=== PATIENT | female | born 1945 | race Caucasian/White ===

== ENCOUNTER 2024-11-10 11:07 | Inpatient (IN) | payer MEDICARE, MEDICAID ==
[~2024-11-10] VITALS: Ht 167.6 cm; Wt 59.4 kg
[~2024-11-10 11:07] MED LIST: ARIP5SOL2 PO; DIPH25CA85 PO; LEVO100 PO; SIMV-260 PO; TRIH2TAB3 PO
[2024-11-10 11:51] LABS: BASOPHILS % (AUTO) 0.4 % (0.0-2.0); HEMATOCRIT 38.8 % (36-46); HEMOGLOBIN 12.6 g/dL (12.0-16.0); LYMPHOCYTES # (AUTO) 0.9 K/uL (1.0-4.8); LYMPHOCYTES % (AUTO) 12.8 % (22.0-44.0); MEAN CORPUSCULAR HEMOGLOBIN 27.9 pg (26.0-34.0); MEAN CORPUSCULAR HGB CONC 32.6 G/dL (31.0-37.0); MEAN CORPUSCULAR VOLUME 86 fL (80-100); MONOCYTES # (AUTO) 0.7 K/uL (0.1-1.0); MONOCYTES % (AUTO) 9.1 % (2.0-9.0); NEUTROPHILS # (AUTO) 5.6 K/uL (1.8-7.7); NEUTROPHILS % (AUTO) 76.7 % (40.0-70.0); PLATELET COUNT (AUTO) 257 K/uL (150-450); RED BLOOD CELL COUNT(AUTO) 4.53 MIL/uL (4.00-5.20); RED CELL DISTRIBUTION WIDTH 15.9 % (11.5-14.5); WHITE BLOOD COUNT (AUTO) 7.3 K/uL (4.5-11.0)
[2024-11-10 11:58] LABS: ANION GAP 12 mmol/L (8-16); CALCIUM, TOTAL 8.8 mg/dL (8.8-10.5); CARBON DIOXIDE 28 mmol/L (22-29); CHLORIDE 107 mmol/L (98-107); CREATININE 0.59 mg/dL (0.60-1.30); GLOMERULAR FILTR. RATE CALC > 60 mL/min (>60); GLUCOSE,RANDOM 92 mg/dL (70-110); SODIUM SERUM 147 mmol/L (136-145); UREA NITROGEN, BLOOD 12 mg/dL (7-18)
[2024-11-10 11:59] LABS: POTASSIUM 2.9 mmol/L (3.5-5.1)
[2024-11-10 12:23] LABS: ALCOHOL, BLOOD (SERUM) < 3 mg/dL (0-10)
[2024-11-10] MEDS: POTASSIUM CHLORIDE 20 MEQ ER TABLET PO ONE ×2 (12:56→16:53)
[2024-11-10] MEDS: OLANZapine 10 MG TABLET PO ONE (12:56)
[2024-11-10] MEDS: ARIPiprazole 5 MG TABLET PO ONE (12:56)
[2024-11-10 13:50] LABS: COVID AG,FIA SOURCE NASAL SWAB
[2024-11-10 14:19] LABS: SARS-COV2 (COVID) ANTIGEN,FIA Negative (Negative)
[2024-11-10 15:42] LABS: APPEARANCE,URINE TURBID (CLEAR); BILIRUBIN,URINE NEGATIVE (NEGATIVE); COLOR,URINE YELLOW (YELLOW); GLUCOSE, URINE (UA) NEGATIVE (NEGATIVE); LEUKOCYTE ESTERASE ,URINE LARGE (NEGATIVE); NITRATE,URINE NEGATIVE (NEGATIVE); OCCULT BLOOD,URINE NEGATIVE (NEGATIVE); PROTEIN,URINE 30-70 mg/dL (NEGATIVE); SPECIFIC GRAVITIY, URINE 1.023 (1.003-1.030)
[2024-11-10 15:50] LABS: ALCOHOL, URINE DRUG SCREEN NEGATIVE (NEGATIVE); AMPHET/METH SCREEN,URINE NEGATIVE (NEGATIVE); BARBITURATE SCREEN, URINE NEGATIVE (NEGATIVE); BENZODIAZEPINES SCREEN,URINE NEGATIVE (NEGATIVE); CANNABINOID SCREEN,URINE NEGATIVE (NEGATIVE); COCAINE SCREEN,URINE NEGATIVE (NEGATIVE); METHADONE SCREEN, URINE NEGATIVE (NEGATIVE); OPIATE SCREEN,URINE NEGATIVE (NEGATIVE); PHENCYCLIDINE SCREEN,URINE NEGATIVE (NEGATIVE)
[2024-11-10 15:51] LABS: BACTERIA,URINE Moderate /HPF (None Seen); RBC,URINE 0-2 /HPF (0-2); WBC,URINE 51-100 /HPF (0-5)
[2024-11-10 15:52] LABS: SQUAMOUS EPITHELIAL CELL,UR Moderate /LPF (None Seen)
[2024-11-10] MEDS: LEVOFLOXACIN 250 MG TABLET PO ONE (16:53)
[2024-11-10] MEDS ORDERED: ZOLPIDEM TARTRATE 10 MG TABLET PO PRN (21:30)
[2024-11-10] MEDS: HALOPERIDOL 5 MG TABLET PO ONE (22:21)
[2024-11-11] MEDS: DENTURE ADHESIVE 68 GM CREAM DT ONE (07:24)
[2024-11-11 11:17] VITALS: BP 132/81; PULSE 73; RESP 18; TEMP 98.1; O2SAT 98
[2024-11-11 11:25] VITALS: BP 132/81; PULSE 73; RESP 18; TEMP 98.3; O2SAT 98
[2024-11-11] MEDS ORDERED: PETROLATUM,WHITE 28 GM JELLY TP PRN (15:15)
[2024-11-11] MEDS ORDERED: GuaiFENesin/D-METHORPHAN [SUGAR-FREE] 200-20MG/10 ML SYRUP UDCUP PO PRN (15:15)
[2024-11-11] MEDS ORDERED: ALBUTEROL SULFATE HFA 90 MCG/PUFF 8 GM INHALER IH PRN (15:15)
[2024-11-11] MEDS ORDERED: LOPERAMIDE HCL 2 MG CAPSULE PO PRN (15:15)
[2024-11-11] MEDS ORDERED: IBUPROFEN 400 MG TABLET PO PRN (15:15)
[2024-11-11] MEDS ORDERED: MAG HYDROX/ALUMINUM HYD/SIMETH ES 30 ML SUSPENSION UDCUP PO PRN (15:15)
[2024-11-11] MEDS ORDERED: ONDANSETRON 4 MG TABLET PO PRN (15:15)
[2024-11-11] MEDS ORDERED: NICOTINE 14 MG/24 HOUR PATCH TD PRN (15:15)
[2024-11-11] MEDS ORDERED: CloNIDine HCL 0.1 MG TABLET PO PRN (15:15)
[2024-11-11] MEDS ORDERED: DOCUSATE SODIUM 100 MG CAPSULE PO PRN (15:15)
[2024-11-11] MEDS: LEVOFLOXACIN 500 MG TABLET PO SCH (17:35)
[2024-11-11 22:10] VITALS: BP 130/79; PULSE 68; RESP 18; TEMP 97.1; O2SAT 96
[2024-11-11] MEDS: ACETAMINOPHEN 325 MG TABLET PO PRN (22:19)
[2024-11-11 23:27] VITALS: RESP 18
[2024-11-12] MEDS: LEVOTHYROXINE SODIUM 50 MCG TABLET PO SCH (06:41)
[2024-11-12] MEDS: PANTOPRAZOLE SODIUM 40 MG DR TABLET PO SCH (06:41)
[2024-11-12 16:31] VITALS: RESP 18; O2SAT 96
[2024-11-12] MEDS: MAGNESIUM HYDROXIDE SUSPENSION 30 ML UDCUP PO PRN (20:29)
[2024-11-12] MEDS: TraZODone HCL 100 MG TABLET PO SCH (21:00)
[2024-11-12] MEDS: OLANZapine 7.5 MG TABLET PO SCH (21:17)
[2024-11-12 22:37] VITALS: BP 99/60; PULSE 89; RESP 18; TEMP 98.2; O2SAT 99
[2024-11-13 07:59] LABS: HEMOGLOBIN A1C 5.9 % (3.8-5.6)
[2024-11-13 08:10] LABS: ALANINE AMINOTRANSFERASE 13 U/L (12-78); ALBUMIN 2.7 g/dL (3.4-5.0); ALKALINE PHOSPHATASE 87 U/L (46-116); ANION GAP 5 mmol/L (8-16); ASPARTATE AMINOTRANSFERASE 11 U/L (15-37); BILIRUBIN,TOTAL 0.3 mg/dL (0.1-1.0); CALCIUM, TOTAL 8.8 mg/dL (8.8-10.5); CARBON DIOXIDE 31 mmol/L (22-29); CHLORIDE 109 mmol/L (98-107); CHOL/HDL RATIO 3.7 (3.9-5.7); CHOLESTEROL 201 mg/dL (131-200); CREATININE 0.68 mg/dL (0.60-1.30); GLOMERULAR FILTR. RATE CALC > 60 mL/min (>60); GLUCOSE,RANDOM 89 mg/dL (70-110); HDL CHOLESTEROL 55 mg/dL (40-60); LDL CHOL (CALC.) 125 mg/dL (0-130); POTASSIUM 3.8 mmol/L (3.5-5.1); SODIUM SERUM 145 mmol/L (136-145); TOTAL PROTEIN, SERUM 6.4 g/dL (6.4-8.2); TRIGLYCERIDES 105 mg/dL (15-150); UREA NITROGEN, BLOOD 13 mg/dL (7-18)
[2024-11-13 08:40] LABS: THYROID STIMULATING HORMONE 0.42 uIU/mL (0.36-3.74)
[2024-11-13 08:45] VITALS: BP 101/59; PULSE 67; RESP 18; TEMP 97.8; O2SAT 98
[2024-11-13 08:53] LABS: BASOPHILS % (AUTO) 0.4 % (0.0-2.0); HEMATOCRIT 39.3 % (36-46); HEMOGLOBIN 12.8 g/dL (12.0-16.0); LYMPHOCYTES # (AUTO) 1.8 K/uL (1.0-4.8); LYMPHOCYTES % (AUTO) 32.3 % (22.0-44.0); MEAN CORPUSCULAR HEMOGLOBIN 28.1 pg (26.0-34.0); MEAN CORPUSCULAR HGB CONC 32.6 G/dL (31.0-37.0); MEAN CORPUSCULAR VOLUME 86 fL (80-100); MONOCYTES # (AUTO) 0.5 K/uL (0.1-1.0); MONOCYTES % (AUTO) 9.2 % (2.0-9.0); NEUTROPHILS % (AUTO) 54.1 % (40.0-70.0); PLATELET COUNT (AUTO) 251 K/uL (150-450); RED BLOOD CELL COUNT(AUTO) 4.56 MIL/uL (4.00-5.20); RED CELL DISTRIBUTION WIDTH 16.3 % (11.5-14.5); WHITE BLOOD COUNT (AUTO) 5.6 K/uL (4.5-11.0)
[2024-11-13] MEDS: DENTURE ADHESIVE 68 GM CREAM DT PRN (13:32)
[2024-11-13 21:53] VITALS: BP 116/79; PULSE 71; RESP 18; TEMP 98; O2SAT 98
[2024-11-14 14:13] VITALS: RESP 17; TEMP 97.7
[2024-11-14 20:52] VITALS: BP 120/99; PULSE 57; RESP 18; TEMP 96.8; O2SAT 99
[2024-11-14 22:00] VITALS: RESP 18
[2024-11-14 23:00] VITALS: RESP 16
[2024-11-15] MEDS: LORazepam 2 MG TABLET PO PRN (00:47)
[2024-11-15 09:00] VITALS: BP 126/70; PULSE 67; RESP 19; TEMP 97.6; O2SAT 95
[2024-11-15 20:00] VITALS: TEMP 98.1; O2SAT 96
[2024-11-16] MEDS ORDERED: PANT-31 PO (12:17)
[2024-11-16] MEDS ORDERED: OLAN7.5T22 PO (12:19)
[2024-11-16] MEDS ORDERED: TRAZ-186 PO (12:19)
== END 2024-11-16 15:15 | DRG 885 ==
LOC: EMS 11:13 → 3EX 11-11 10:52 → UNDOADMIN 11-11 13:22
PROVIDERS: ADMIT Psychiatry & Neurology Psychiatry; ATTEND Psychiatry & Neurology Psychiatry
PROC: GZHZZZZ Group Psychotherapy (ICD-10-PCS; principal; 2024-11-12)
PROC: GZ52ZZZ Individual Psychotherapy, Cognitive (ICD-10-PCS; 2024-11-12)
PROC: GZ56ZZZ Individual Psychotherapy, Supportive (ICD-10-PCS; 2024-11-12)
DX: F20.0 Paranoid schizophrenia (principal); N39.0 Urinary tract infection, site not specified; K21.9 Gastro-esophageal reflux disease without esophagitis; E03.9 Hypothyroidism, unspecified; Z20.822 Contact with and (suspected) exposure to COVID-19; E78.5 Hyperlipidemia, unspecified; E87.6 Hypokalemia; G20.A1 Parkinson's disease without dyskinesia, without mention of fluctuations; Z79.899 Other long term (current) drug therapy; Z88.0 Allergy status to penicillin; Z95.0 Presence of cardiac pacemaker; F32.A Depression, unspecified; Z88.8 Allergy status to other drugs, medicaments and biological substances
CPT/HCPCS: 80048; 80053; 80061; 80307; 81001; 83036; 84132; 84443; 85025; 87077; 87081; 87086; 99285; G0378; G0480

== ENCOUNTER 2025-05-09 12:21 | Inpatient (IN) | payer MEDICARE, MEDICAID ==
[~2025-05-09] VITALS: Ht 165.1 cm; Wt 61.4 kg
[~2025-05-09 12:21] MED LIST changes: -ARIP5SOL2 PO; +CEPH-558 PO; -DIPH25CA85 PO; +OLAN10TA74 PO; +PANT-31 PO; -SIMV-260 PO; +TRAZ-186 PO; -TRIH2TAB3 PO
[2025-05-09 13:21] LABS: COVID AG,FIA SOURCE NASAL SWAB
[2025-05-09 13:27] LABS: APPEARANCE,URINE CLEAR (CLEAR); GLUCOSE, URINE (UA) NEGATIVE (NEGATIVE); LEUKOCYTE ESTERASE ,URINE SMALL (NEGATIVE); NITRATE,URINE NEGATIVE (NEGATIVE); OCCULT BLOOD,URINE NEGATIVE (NEGATIVE); PH,URINE DRUG SCREEN 6.0 (5.0-8.0); SPECIFIC GRAVITIY, URINE 1.014 (1.003-1.030)
[2025-05-09 13:28] LABS: PLATELET COUNT (AUTO) 222 K/uL (150-450); RED BLOOD CELL COUNT(AUTO) 4.14 MIL/uL (4.00-5.20); RED CELL DISTRIBUTION WIDTH 16.5 % (11.5-14.5); WHITE BLOOD COUNT (AUTO) 5.7 K/uL (4.5-11.0)
[2025-05-09 13:33] LABS: ALCOHOL, URINE DRUG SCREEN NEGATIVE (NEGATIVE); AMPHET/METH SCREEN,URINE NEGATIVE (NEGATIVE); BARBITURATE SCREEN, URINE NEGATIVE (NEGATIVE); CANNABINOID SCREEN,URINE NEGATIVE (NEGATIVE); COCAINE SCREEN,URINE NEGATIVE (NEGATIVE); METHADONE SCREEN, URINE NEGATIVE (NEGATIVE)
[2025-05-09 13:34] LABS: CALCIUM, TOTAL 8.3 mg/dL (8.8-10.5); CREATININE 0.70 mg/dL (0.60-1.30); GLOMERULAR FILTR. RATE CALC > 60 mL/min (>60); GLUCOSE,RANDOM 82 mg/dL (70-110); SODIUM SERUM 142 mmol/L (136-145); UREA NITROGEN, BLOOD 11 mg/dL (7-18)
[2025-05-09 13:39] LABS: SQUAMOUS EPITHELIAL CELL,UR Rare /LPF (None Seen)
[2025-05-09 14:07] LABS: SARS-COV2 (COVID) ANTIGEN,FIA Negative (Negative)
[2025-05-09] MEDS: CEPHALEXIN MONOHYDRATE 500 MG CAPSULE PO ONE (14:13)
[2025-05-09] MEDS: POTASSIUM CHLORIDE 20 MEQ ER TABLET PO ONE (14:13)
[2025-05-09] MEDS ORDERED: ZOLPIDEM TARTRATE 10 MG TABLET PO PRN (17:00)
[2025-05-10 00:39] VITALS: BP 133/87; PULSE 79; RESP 18; TEMP 97.9; O2SAT 98
[2025-05-10] MEDS ORDERED: IBUPROFEN 600 MG TABLET PO PRN (06:45)
[2025-05-10] MEDS ORDERED: BACITRACIN 28 GM OINTMENT TP PRN (06:45)
[2025-05-10] MEDS ORDERED: ACETAMINOPHEN 325 MG TABLET PO PRN (06:45)
[2025-05-10] MEDS ORDERED: MAG HYDROX/ALUMINUM HYD/SIMETH ES 30 ML SUSPENSION UDCUP PO PRN (06:45)
[2025-05-10] MEDS ORDERED: ALBUTEROL SULFATE HFA 90 MCG/PUFF 8 GM INHALER IH PRN (06:45)
[2025-05-10] MEDS ORDERED: LOPERAMIDE HCL 2 MG CAPSULE PO PRN (06:45)
[2025-05-10] MEDS ORDERED: ONDANSETRON 4 MG TABLET PO PRN (06:45)
[2025-05-10] MEDS ORDERED: DOCUSATE SODIUM 100 MG CAPSULE PO PRN (06:45)
[2025-05-10] MEDS ORDERED: OMEPRAZOLE 20 MG CAPSULE PO PRN (06:45)
[2025-05-10] MEDS ORDERED: PETROLATUM,WHITE 28 GM JELLY TP PRN (06:45)
[2025-05-10] MEDS ORDERED: BENZOCAINE/MENTHOL [CEPACOL] LOZENGE PO PRN (06:45)
[2025-05-10] MEDS: PANTOPRAZOLE SODIUM 40 MG DR TABLET PO SCH (07:04)
[2025-05-10] MEDS: LEVOTHYROXINE SODIUM 100 MCG TABLET PO SCH (07:04)
[2025-05-10] MEDS: CEPHALEXIN MONOHYDRATE 500 MG CAPSULE PO SCH (08:03)
[2025-05-10 08:30] VITALS: BP 124/81; PULSE 60; RESP 18; TEMP 98; O2SAT 99
[2025-05-10 09:24] VITALS: BP 124/81; PULSE 60; RESP 18; TEMP 98; O2SAT 99
[2025-05-10 21:17] VITALS: BP 94/76; PULSE 68; RESP 18; TEMP 98; O2SAT 97
[2025-05-10 21:27] VITALS: BP 94/76; PULSE 68; RESP 18; TEMP 98; O2SAT 97
[2025-05-11] MEDS: MAGNESIUM HYDROXIDE SUSPENSION 30 ML UDCUP PO PRN (06:34)
[2025-05-11 06:49] LABS: CALCIUM, TOTAL 8.6 mg/dL (8.8-10.5); CREATININE 0.63 mg/dL (0.60-1.30); GLOMERULAR FILTR. RATE CALC > 60 mL/min (>60); GLUCOSE,RANDOM 86 mg/dL (70-110); SODIUM SERUM 144 mmol/L (136-145); UREA NITROGEN, BLOOD 15 mg/dL (7-18)
[2025-05-11 08:59] VITALS: BP 116/72; PULSE 70; RESP 17; TEMP 98.1; O2SAT 96
[2025-05-11 11:12] VITALS: BP 116/72; PULSE 70; RESP 17; TEMP 98.1; O2SAT 96
[2025-05-11] MEDS: ETHYL ALCOHOL 62% ANTISEPTIC NASAL SANITIZER 0.6 ML AMPUL NASAL SCH (20:08)
[2025-05-11 21:23] VITALS: BP 102/62; PULSE 77; RESP 18; TEMP 97.2; O2SAT 98
[2025-05-11 23:30] VITALS: BP 102/62; PULSE 77; RESP 18; TEMP 97.2; O2SAT 98
[2025-05-12 08:23] VITALS: BP 113/70; PULSE 92; RESP 18; TEMP 97.7; O2SAT 100
[2025-05-12 21:35] VITALS: BP 99/61; PULSE 88; RESP 18; TEMP 98.1; O2SAT 98
[2025-05-13 09:39] VITALS: BP 101/64; PULSE 87; RESP 18; TEMP 97.6; O2SAT 100
[2025-05-13 09:40] VITALS: BP 101/64; PULSE 87; RESP 18; TEMP 97.6; O2SAT 100
[2025-05-13 20:18] VITALS: BP 124/83; PULSE 79; RESP 18; TEMP 96.8; O2SAT 98
[2025-05-14 09:24] VITALS: BP 134/79; PULSE 73; RESP 18; TEMP 98.4; O2SAT 100
[2025-05-14 21:27] VITALS: BP 126/87; PULSE 79; RESP 18; TEMP 97.8; O2SAT 95
[2025-05-15 10:01] VITALS: BP 123/65; PULSE 78; RESP 18; TEMP 97.9; O2SAT 97
[2025-05-15] MEDS ORDERED: FluPHENAZine HCL 2.5 MG/ML INJ IM PRN (12:30)
[2025-05-15 20:24] VITALS: BP 96/65; PULSE 74; RESP 18; TEMP 97.4; O2SAT 97
[2025-05-16 10:13] VITALS: BP 119/92; PULSE 69; RESP 18; TEMP 97.9; O2SAT 97
== END 2025-05-16 14:20 | DRG 885 ==
LOC: EMS 12:24 → 3EI 22:08 → EMS 22:09
PROVIDERS: ADMIT Psychiatry & Neurology Psychiatry; ATTEND Psychiatry & Neurology Psychiatry
PROC: GZHZZZZ Group Psychotherapy (ICD-10-PCS; principal; 2025-05-10)
PROC: GZ52ZZZ Individual Psychotherapy, Cognitive (ICD-10-PCS; 2025-05-15)
DX: F25.0 Schizoaffective disorder, bipolar type (principal); N39.0 Urinary tract infection, site not specified; G20.A1 Parkinson's disease without dyskinesia, without mention of fluctuations; E03.9 Hypothyroidism, unspecified; S60.511A Abrasion of right hand, initial encounter; E87.6 Hypokalemia; E78.5 Hyperlipidemia, unspecified; J44.9 Chronic obstructive pulmonary disease, unspecified; Z20.822 Contact with and (suspected) exposure to COVID-19; I10 Essential (primary) hypertension; K21.9 Gastro-esophageal reflux disease without esophagitis; F41.9 Anxiety disorder, unspecified; G47.00 Insomnia, unspecified; Y04.0XXA Assault by unarmed brawl or fight, initial encounter; Y93.89 Activity, other specified; Y92.128 Other place in nursing home as the place of occurrence of the external cause; Y99.8 Other external cause status; Z95.0 Presence of cardiac pacemaker; Z79.899 Other long term (current) drug therapy; Z88.0 Allergy status to penicillin; Z88.8 Allergy status to other drugs, medicaments and biological substances
CPT/HCPCS: 80048; 80307; 81001; 85025; 87081; 99285; G0480